=== PATIENT | male | born 1995 | race Caucasian/White ===

== ENCOUNTER → 2017-06-25 | Emergency (ER) | payer OTHER ==
[~2017-06-25] VITALS: Ht 170.2 cm; Wt 70.3 kg
[~2017-06-25] MED LIST: AMOX1TAB5 PO
== END | disposition home or self-care (01) ==
LOC: ER 23:56
DX: S61.216A Laceration without foreign body of right little finger without damage to nail, initial encounter (principal); W54.0XXA Bitten by dog, initial encounter; Y93.89 Activity, other specified; Y92.89 Other specified places as the place of occurrence of the external cause; Y99.8 Other external cause status